=== PATIENT | male | born 1990 | race Two or more races ===

== ENCOUNTER → 2021-08-12 | Outpatient (CLI) | payer MEDICAID | END | disposition home or self-care (01) | LOC: RADPV 07-28 10:23 | PROVIDERS: ATTEND Family Medicine | DX: M81.8 Other osteoporosis without current pathological fracture (principal); M85.88 Other specified disorders of bone density and structure, other site; Z13.820 Encounter for screening for osteoporosis | CPT/HCPCS: 77080 ==

== ENCOUNTER 2024-01-23 16:06 | Inpatient (IN) | payer MEDICAID, OTHER ==
[~2024-01-23] VITALS: Ht 162.6 cm; Wt 64.5 kg
[2024-01-23] MEDS: LevETIRAcetam 1,000 MG in DEXTROSE 5%-WATER 100 ML IV ONE (17:00)
[2024-01-23 17:14] LABS: BASOPHILS % (AUTO) 1.1 % (0.0-2.0); EOSINOPHILS % (AUTO) 2.9 % (1.0-6.0); HEMATOCRIT 40.6 % (41-53); HEMOGLOBIN 13.8 g/dL (13.5-17.5); LYMPHOCYTES # (AUTO) 1.3 K/uL (1.0-4.8); LYMPHOCYTES % (AUTO) 32.1 % (22.0-44.0); MEAN CORPUSCULAR HEMOGLOBIN 30.1 pg (26.0-34.0); MEAN CORPUSCULAR VOLUME 89 fL (80-100); MONOCYTES # (AUTO) 0.4 K/uL (0.1-1.0); MONOCYTES % (AUTO) 9.5 % (2.0-9.0); NEUTROPHILS # (AUTO) 2.2 K/uL (1.8-7.7); NEUTROPHILS % (AUTO) 54.4 % (40.0-70.0); PLATELET COUNT (AUTO) 209 K/uL (150-450); RED BLOOD CELL COUNT(AUTO) 4.58 MIL/uL (4.50-5.90); RED CELL DISTRIBUTION WIDTH 13.6 % (11.5-14.5)
[2024-01-23 17:24] LABS: ANION GAP 1 mmol/L (8-16); CALCIUM, TOTAL 9.4 mg/dL (8.8-10.5); CARBON DIOXIDE 40 mmol/L (22-29); CHLORIDE 96 mmol/L (98-107); CREATININE 0.83 mg/dL (0.60-1.30); GLOMERULAR FILTR. RATE CALC > 60 mL/min (>60); GLUCOSE,RANDOM 84 mg/dL (70-110); SODIUM SERUM 137 mmol/L (136-145); UREA NITROGEN, BLOOD 8 mg/dL (7-18)
[2024-01-23 17:39] LABS: B-TYPE NATRIURETIC PEPTIDE < 5 pg/mL (0-100)
[2024-01-23 17:45] LABS: TROPONIN I-HIGH SENSITIVITY Less Than 4 ng/L (<76)
[2024-01-23 17:47] LABS: CREATINE KINASE, TOTAL ONLY 137 U/L (39-308)
[2024-01-23 18:44] LABS: APPEARANCE,URINE CLEAR (CLEAR); BILIRUBIN,URINE NEGATIVE (NEGATIVE); COLOR,URINE LIGHT YELLOW (YELLOW); GLUCOSE, URINE (UA) NEGATIVE (NEGATIVE); KETONES,URINE NEGATIVE (NEGATIVE); LEUKOCYTE ESTERASE ,URINE NEGATIVE (NEGATIVE); NITRATE,URINE NEGATIVE (NEGATIVE); OCCULT BLOOD,URINE NEGATIVE (NEGATIVE); PH,URINE 7.5 (5.0-8.0); PROTEIN,URINE NEGATIVE (NEGATIVE); SPECIFIC GRAVITIY, URINE 1.009 (1.003-1.030); UROBILINOGEN,URINE <=1.0 mg/dL (<=1.0)
[2024-01-23] MEDS ORDERED: ACETAMINOPHEN 325 MG TABLET PO PRN (18:45)
[2024-01-23] MEDS ORDERED: DIAZ10SP NASAL (19:12)
[2024-01-23] MEDS ORDERED: BACL5TAB GT (19:12)
[2024-01-23] MEDS ORDERED: RISP-32 GT (19:12)
[2024-01-23] MEDS ORDERED: MAGN-169 GT (19:12)
[2024-01-23] MEDS ORDERED: ACET-2247 GT (19:12)
[2024-01-23] MEDS ORDERED: BACL20TA GT (19:12)
[2024-01-23] MEDS ORDERED: VALP250S23 GT ×2 (19:12)
[2024-01-23] MEDS ORDERED: ACET650S24 PR (19:12)
[2024-01-23] MEDS ORDERED: ESCI20TA87 GT (19:12)
[2024-01-23] MEDS ORDERED: PROM25TA7 GT (19:12)
[2024-01-23] MEDS ORDERED: FENO54TA7 GT (19:12)
[2024-01-23] MEDS ORDERED: ALEN70TA80 GT (19:12)
[2024-01-23] MEDS ORDERED: LEVE100S7 GT ×2 (19:12)
[2024-01-23] MEDS ORDERED: TRIH2TAB3 GT (19:12)
[2024-01-23] MEDS ORDERED: CHOL25TA4 GT (19:12)
[2024-01-23] MEDS ORDERED: 0.9% SODIUM CHLORIDE 10 ML SYRINGE IVP PRN (21:30)
[2024-01-23] MEDS: SODIUM CHLORIDE 0.9% 1,650 ML IV ONE (21:32)
[2024-01-23] MEDS: CefTRIAXone 1 GM/DEXTROSE 50 ML IV ONE (21:45)
[2024-01-23] MEDS ORDERED: SODIUM CHLORIDE 0.9% 100 ML ONE (22:12)
[2024-01-23] MEDS ORDERED: IOHEXOL 350 MG/ML 100 ML VIAL ONE (22:12)
[2024-01-23 22:18] LABS: ANION GAP 2 mmol/L (8-16); CALCIUM, TOTAL 9.3 mg/dL (8.8-10.5); CARBON DIOXIDE 36 mmol/L (22-29); CHLORIDE 97 mmol/L (98-107); CREATININE 0.69 mg/dL (0.60-1.30); GLOMERULAR FILTR. RATE CALC > 60 mL/min (>60); GLUCOSE,RANDOM 74 mg/dL (70-110); POTASSIUM 5.2 mmol/L (3.5-5.1); SODIUM SERUM 135 mmol/L (136-145); UREA NITROGEN, BLOOD 9 mg/dL (7-18)
[2024-01-23 22:24] LABS: ALANINE AMINOTRANSFERASE 18 U/L (12-78); ALBUMIN 3.6 g/dL (3.4-5.0); ALKALINE PHOSPHATASE 43 U/L (46-116); ASPARTATE AMINOTRANSFERASE 46 U/L (15-37); BILIRUBIN,TOTAL 0.3 mg/dL (0.1-1.0); LACTATE DEHYDROGENASE 337 U/L (85-227); TOTAL PROTEIN, SERUM 8.2 g/dL (6.4-8.2)
[2024-01-23 22:26] LABS: LACTIC ACID 0.9 mmol/L (0.4-2.0)
[2024-01-23] MEDS: ALBUTEROL SULFATE 2.5 MG/0.5 ML NEB SOLUTION NEB ONE (23:22)
[2024-01-23 23:29] VITALS: PULSE 85; RESP 25; O2SAT 86
[2024-01-23 23:30] VITALS: PULSE 85; RESP 25; O2SAT 86
[2024-01-23] MEDS ORDERED: ACETAMINOPHEN 650 MG/20.3 ML SOLUTION UDCUP GT PRN (23:50)
[2024-01-24 02:28] VITALS: BP 94/65; PULSE 83; RESP 18; O2SAT 94
[2024-01-24] MEDS: SODIUM CHLORIDE 0.9% 1,000 ML IV ONE ×2 (03:01→22:43)
[2024-01-24 03:18] VITALS: BP 95/68; PULSE 76; RESP 18; TEMP 96.6; O2SAT 97
[2024-01-24] MEDS: PIPERACILLIN/TAZO 3.375 GM/D5W 50 ML IV SCH (04:32)
[2024-01-24 04:36] LABS: ANION GAP 6 mmol/L (8-16); CALCIUM, TOTAL 8.5 mg/dL (8.8-10.5); CARBON DIOXIDE 32 mmol/L (22-29); CHLORIDE 102 mmol/L (98-107); CREATININE 0.82 mg/dL (0.60-1.30); GLOMERULAR FILTR. RATE CALC > 60 mL/min (>60); GLUCOSE,RANDOM 94 mg/dL (70-110); POTASSIUM 4.4 mmol/L (3.5-5.1); SODIUM SERUM 140 mmol/L (136-145); UREA NITROGEN, BLOOD 8 mg/dL (7-18)
[2024-01-24 04:40] LABS: BASOPHILS % (AUTO) 0.3 % (0.0-2.0); EOSINOPHILS % (AUTO) 0.9 % (1.0-6.0); HEMATOCRIT 39.1 % (41-53); HEMOGLOBIN 13.1 g/dL (13.5-17.5); LYMPHOCYTES # (AUTO) 1.8 K/uL (1.0-4.8); LYMPHOCYTES % (AUTO) 26.1 % (22.0-44.0); MEAN CORPUSCULAR HEMOGLOBIN 30.1 pg (26.0-34.0); MEAN CORPUSCULAR HGB CONC 33.5 G/dL (31.0-37.0); MEAN CORPUSCULAR VOLUME 90 fL (80-100); MONOCYTES # (AUTO) 0.6 K/uL (0.1-1.0); MONOCYTES % (AUTO) 8.8 % (2.0-9.0); NEUTROPHILS # (AUTO) 4.5 K/uL (1.8-7.7); NEUTROPHILS % (AUTO) 63.9 % (40.0-70.0); PLATELET COUNT (AUTO) 124 K/uL (150-450); RED BLOOD CELL COUNT(AUTO) 4.36 MIL/uL (4.50-5.90); RED CELL DISTRIBUTION WIDTH 13.5 % (11.5-14.5)
[2024-01-24 08:02] VITALS: BP 95/65; PULSE 72; RESP 17; TEMP 98; O2SAT 96
[2024-01-24] MEDS: RisperiDONE CONC 2 MG/2 ML SOLUTION ORAL.SYG GT SCH (08:42)
[2024-01-24] MEDS: ESCITALOPRAM OXALATE 20 MG TABLET GT SCH (08:43)
[2024-01-24] MEDS: FENOFIBRATE 54 MG TABLET GT SCH (08:43)
[2024-01-24] MEDS: TRIHEXYPHENIDYL HCL 2 MG TABLET GT SCH (08:43)
[2024-01-24] MEDS: CHOLECALCIFEROL (VIT D3) 1,000 UNITS [25 MCG] TABLET GT SCH (08:43)
[2024-01-24] MEDS: BACLOFEN 10 MG TABLET GT SCH ×2 (08:43→20:04)
[2024-01-24] MEDS: VALPROIC ACID 250 MG/5 ML SOLUTION UDCUP GT SCH ×2 (08:46→20:02)
[2024-01-24] MEDS: LevETIRAcetam 100 MG/ML 5 ML SOLUTION UDCUP GT SCH ×2 (08:47→20:02)
[2024-01-24] MEDS ORDERED: LevETIRAcetam 500 MG TABLET PO SCH (09:00)
[2024-01-24 11:54] VITALS: BP 123/77; PULSE 84; RESP 18; TEMP 98.1; O2SAT 97
[2024-01-24 19:24] VITALS: BP 107/70; PULSE 75; RESP 18; TEMP 97.6; O2SAT 98
[2024-01-24] MEDS: PROMETHAZINE HCL 25 MG TABLET GT PRN (20:03)
[2024-01-24] MEDS: HEPARIN SODIUM,PORCINE 5,000 UNITS/ML VIAL SQ SCH (23:01)
[2024-01-24 23:59] VITALS: BP 104/64; PULSE 81; RESP 18; TEMP 97.5; O2SAT 98
[2024-01-25 04:01] VITALS: BP 123/56; PULSE 82; RESP 18; TEMP 98.1; O2SAT 98
[2024-01-25 06:30] LABS: BASOPHILS % (AUTO) 0.3 % (0.0-2.0); EOSINOPHILS % (AUTO) 0.3 % (1.0-6.0); HEMATOCRIT 37.3 % (41-53); HEMOGLOBIN 12.8 g/dL (13.5-17.5); LYMPHOCYTES # (AUTO) 1.4 K/uL (1.0-4.8); LYMPHOCYTES % (AUTO) 18.6 % (22.0-44.0); MEAN CORPUSCULAR HEMOGLOBIN 30.4 pg (26.0-34.0); MEAN CORPUSCULAR HGB CONC 34.2 G/dL (31.0-37.0); MEAN CORPUSCULAR VOLUME 89 fL (80-100); MONOCYTES # (AUTO) 0.5 K/uL (0.1-1.0); MONOCYTES % (AUTO) 6.9 % (2.0-9.0); NEUTROPHILS # (AUTO) 5.5 K/uL (1.8-7.7); NEUTROPHILS % (AUTO) 73.9 % (40.0-70.0); PLATELET COUNT (AUTO) 188 K/uL (150-450); RED CELL DISTRIBUTION WIDTH 13.4 % (11.5-14.5); WHITE BLOOD COUNT (AUTO) 7.4 K/uL (4.5-11.0)
[2024-01-25 06:38] LABS: ANION GAP 5 mmol/L (8-16); CALCIUM, TOTAL 8.9 mg/dL (8.8-10.5); CARBON DIOXIDE 34 mmol/L (22-29); CHLORIDE 105 mmol/L (98-107); CREATININE 0.86 mg/dL (0.60-1.30); GLOMERULAR FILTR. RATE CALC > 60 mL/min (>60); GLUCOSE,RANDOM 75 mg/dL (70-110); POTASSIUM 4.3 mmol/L (3.5-5.1); SODIUM SERUM 144 mmol/L (136-145); UREA NITROGEN, BLOOD 9 mg/dL (7-18)
[2024-01-25 08:19] VITALS: BP 83/62; PULSE 73; RESP 19; TEMP 98.4; O2SAT 98
[2024-01-25] MEDS ORDERED: SODIUM CHLORIDE 0.9% 0 ML IV ONE (08:50)
[2024-01-25 10:39] VITALS: BP 96/72; PULSE 72; RESP 18; TEMP 98.2; O2SAT 98
[2024-01-25] MEDS ORDERED: AMOX400S55 PO (11:17)
[2024-01-25 15:18] VITALS: BP 106/76; PULSE 73; RESP 18; TEMP 98; O2SAT 95
[2024-01-25 20:00] VITALS: BP 96/53; PULSE 70; RESP 18; TEMP 98; O2SAT 97
[2024-01-26] VITALS: BP 110/52; PULSE 72; RESP 17; TEMP 98.1; O2SAT 96
[2024-01-26 04:00] VITALS: BP 93/56; PULSE 68; RESP 18; TEMP 98.1; O2SAT 98
[2024-01-26 06:42] LABS: BASOPHILS % (AUTO) 0.5 % (0.0-2.0); EOSINOPHILS % (AUTO) 0.4 % (1.0-6.0); HEMATOCRIT 35.5 % (41-53); HEMOGLOBIN 12.5 g/dL (13.5-17.5); LYMPHOCYTES # (AUTO) 1.6 K/uL (1.0-4.8); LYMPHOCYTES % (AUTO) 21.9 % (22.0-44.0); MEAN CORPUSCULAR HEMOGLOBIN 31.1 pg (26.0-34.0); MEAN CORPUSCULAR HGB CONC 35.2 G/dL (31.0-37.0); MEAN CORPUSCULAR VOLUME 89 fL (80-100); MONOCYTES # (AUTO) 0.5 K/uL (0.1-1.0); MONOCYTES % (AUTO) 7.5 % (2.0-9.0); NEUTROPHILS % (AUTO) 69.7 % (40.0-70.0); PLATELET COUNT (AUTO) 204 K/uL (150-450); RED BLOOD CELL COUNT(AUTO) 4.01 MIL/uL (4.50-5.90); RED CELL DISTRIBUTION WIDTH 13.2 % (11.5-14.5); WHITE BLOOD COUNT (AUTO) 7.2 K/uL (4.5-11.0)
[2024-01-26 07:03] LABS: ANION GAP 7 mmol/L (8-16); CALCIUM, TOTAL 9.8 mg/dL (8.8-10.5); CARBON DIOXIDE 33 mmol/L (22-29); CHLORIDE 104 mmol/L (98-107); CREATININE 0.96 mg/dL (0.60-1.30); GLOMERULAR FILTR. RATE CALC > 60 mL/min (>60); GLUCOSE,RANDOM 87 mg/dL (70-110); POTASSIUM 3.8 mmol/L (3.5-5.1); SODIUM SERUM 144 mmol/L (136-145); UREA NITROGEN, BLOOD 13 mg/dL (7-18)
[2024-01-26 07:57] VITALS: BP 107/75; PULSE 75; RESP 16; TEMP 98.4; O2SAT 97
[2024-01-26 11:19] VITALS: BP 102/62; PULSE 77; RESP 16; TEMP 98.5; O2SAT 95
[2024-01-26 16:20] VITALS: BP 107/75; PULSE 68; RESP 17; TEMP 98.1; O2SAT 97
[2024-01-26 20:00] VITALS: BP 95/59; PULSE 58; RESP 18; TEMP 97.6; O2SAT 98
[2024-01-27] VITALS: BP 78/49; PULSE 54; RESP 17; TEMP 97.4; O2SAT 97
[2024-01-27 04:00] VITALS: BP 97/61; PULSE 64; RESP 18; TEMP 98.1; O2SAT 99
[2024-01-27 07:27] VITALS: BP 134/69; PULSE 94; RESP 16; TEMP 98.5; O2SAT 98
[2024-01-27 09:18] LABS: BASOPHILS % (AUTO) 0.6 % (0.0-2.0); EOSINOPHILS % (AUTO) 0.8 % (1.0-6.0); HEMATOCRIT 36.8 % (41-53); HEMOGLOBIN 12.8 g/dL (13.5-17.5); LYMPHOCYTES # (AUTO) 1.8 K/uL (1.0-4.8); LYMPHOCYTES % (AUTO) 24.2 % (22.0-44.0); MEAN CORPUSCULAR HGB CONC 34.9 G/dL (31.0-37.0); MEAN CORPUSCULAR VOLUME 89 fL (80-100); MONOCYTES # (AUTO) 0.7 K/uL (0.1-1.0); MONOCYTES % (AUTO) 9.6 % (2.0-9.0); NEUTROPHILS # (AUTO) 4.9 K/uL (1.8-7.7); NEUTROPHILS % (AUTO) 64.8 % (40.0-70.0); PLATELET COUNT (AUTO) 185 K/uL (150-450); RED BLOOD CELL COUNT(AUTO) 4.14 MIL/uL (4.50-5.90); RED CELL DISTRIBUTION WIDTH 13.6 % (11.5-14.5); WHITE BLOOD COUNT (AUTO) 7.6 K/uL (4.5-11.0)
[2024-01-27 09:42] LABS: ANION GAP 6 mmol/L (8-16); CALCIUM, TOTAL 9.6 mg/dL (8.8-10.5); CARBON DIOXIDE 33 mmol/L (22-29); CHLORIDE 103 mmol/L (98-107); CREATININE 1.03 mg/dL (0.60-1.30); GLOMERULAR FILTR. RATE CALC > 60 mL/min (>60); GLUCOSE,RANDOM 103 mg/dL (70-110); POTASSIUM 4.1 mmol/L (3.5-5.1); SODIUM SERUM 142 mmol/L (136-145); UREA NITROGEN, BLOOD 14 mg/dL (7-18)
[2024-01-27 11:30] VITALS: BP 101/54; PULSE 78; RESP 16; TEMP 98.4; O2SAT 95
[2024-01-28] MEDS ORDERED: ALENDRONATE SODIUM 70 MG TABLET GT SCH (06:30)
== END 2024-01-27 14:35 | disposition home or self-care (01) | DRG 53 ==
LOC: EMS 16:06 → EDH 18:36 → 5S 01-24 01:45
PROVIDERS: ADMIT Internal Medicine; ATTEND Internal Medicine
DX: G40.901 Epilepsy, unspecified, not intractable, with status epilepticus (principal); J96.01 Acute respiratory failure with hypoxia; J69.0 Pneumonitis due to inhalation of food and vomit; G93.41 Metabolic encephalopathy; E43 Unspecified severe protein-calorie malnutrition; R53.2 Functional quadriplegia; E87.3 Alkalosis; L89.899 Pressure ulcer of other site, unspecified stage; R41.89 Other symptoms and signs involving cognitive functions and awareness; R13.10 Dysphagia, unspecified; Z93.1 Gastrostomy status; Z79.899 Other long term (current) drug therapy; Z98.2 Presence of cerebrospinal fluid drainage device; Z68.24 Body mass index [BMI] 24.0-24.9, adult; Z74.01 Bed confinement status
CPT/HCPCS: 51701; 70450; 71045; 71275; 80048; 80053; 80164; 81003; 82550; 83605; 83615; 83735; 83880; 84145; 84443; 84484; 85025; 85730; 87040; 87481; 93005; 94640; 99285; G0378; J0696; J0712; J1644; J2543; J7030; J7050; J7060; 36415-L1; 36415-TC; J7613